=== PATIENT | female | born 1965 | race Caucasian/White ===

== ENCOUNTER 2017-04-27 15:14 | Emergency (ER) | payer BC ==
[~2017-04-27] VITALS: Ht 172.7 cm; Wt 63.5 kg
[~2017-04-27 15:14] MED LIST: FLUO10CA26 PO; OXCA300T4 PO
[2017-04-27 17:34] VITALS: BP 136/82
== END 2017-04-27 17:35 | disposition home or self-care (01) ==
LOC: ER 15:15
DX: S09.90XA Unspecified injury of head, initial encounter (principal); Z88.1 Allergy status to other antibiotic agents; W01.0XXA Fall on same level from slipping, tripping and stumbling without subsequent striking against object, initial encounter; Y92.89 Other specified places as the place of occurrence of the external cause; Y93.89 Activity, other specified; Y99.8 Other external cause status
CPT/HCPCS: 70450; 99284; A4663